=== PATIENT | male | born 1965 | race American Indian/Alaskan Native ===

== ENCOUNTER 2020-07-14 16:56 | Emergency (ER) | payer MEDICAID, SELFPAY ==
[~2020-07-14] VITALS: Ht 175.3 cm; Wt 122.5 kg
[~2020-07-14 16:56] MED LIST: DECADRON6 MG PO; ELIQUIS5 MG PO; MEDROL4 MG PO; PROAIR HFA8.5 GM INH
[2020-07-14 16:58] VITALS: BP 112/62; Ht 175.3 cm; Wt 122.5 kg
[2020-07-14 18:40] LABS: CALCIUM 9.4 mg/dL (8.5-10.1); CARBON DIOXIDE 26.9 mmol/L (21-32); CHLORIDE SERUM 101 mmol/L (98-107); CREATININE SERUM 1.1 mg/dL (0.7-1.3); GFR1 > 60 mL/min; GLUCOSE SERUM 119 mg/dL (74-106); POTASSIUM SERUM 4.3 mmol/L (3.5-5.1); SODIUM SERUM 137 mmol/L (136-145)
== END 2020-07-14 19:12 | disposition home or self-care (01) ==
LOC: ED 16:56
PROVIDERS: Emergency Medicine
DX: R06.00 Dyspnea, unspecified (principal); J45.909 Unspecified asthma, uncomplicated
CPT/HCPCS: Q9967